=== PATIENT | male | born 2000 | race African-American/Black ===

== ENCOUNTER 2020-02-28 11:30 | Outpatient (CLI) | payer OTHER | END 2020-02-28 11:31 | disposition home or self-care (01) | LOC: COV 11:30 | PROVIDERS: ATTEND Family Medicine | DX: R53.83 Other fatigue (principal); R07.0 Pain in throat; R09.81 Nasal congestion; J34.89 Other specified disorders of nose and nasal sinuses; Z20.828 Contact with and (suspected) exposure to other viral communicable diseases ==